=== PATIENT | female | born 1955 | race Caucasian/White ===

== ENCOUNTER 2016-08-15 19:44 | Emergency (ER) | payer OTHER ==
[~2016-08-15] VITALS: Ht 167.6 cm; Wt 97.8 kg
[2016-08-15 19:48] VITALS: TEMP 36.7; Ht 167.6 cm; Wt 97.8 kg
[2016-08-15] MEDS ORDERED: LISI10TA PO (20:08)
[2016-08-15] MEDS ORDERED: SIMV40TA2 PO (20:08)
[2016-08-15] MEDS ORDERED: CARV6.252 PO (20:08)
[2016-08-15 21:05] VITALS: BP 169/123; PULSE 78; O2SAT 95
--- NOTE | 2016-08-15 21:54 | EMERGENCY ROOM VISIT NOTE ---
ED Visit Note First contact with patient: 19:56 CHIEF COMPLAINT: Sore throat HISTORY OF PRESENT ILLNESS: This 60-year-old female patient presents to the emergency department complaining of increasing pain in the throat for the past 3 -4 hours, gradual in onset, worse with swallowing. They rate the pain as sharp and 6/10. They are able to swallow foods and liquids, however does worsen their discomfort.. The patient has not had a fever. No rash. Denies any posterior neck pain or stiffness. No difficulty breathing. There has been no chest pain, no abdominal pain, no nausea or vomiting. Patient denies any cough , rhinorrhea, congestion, or ear pain. The patient has taken nothing for their symptoms. REVIEW OF SYSTEMS: A 6 system review of systems was completed with pertinent positives and negatives in the HPI. ALLERGIES: No known allergies MEDICATIONS: No chronic medications PMH: Otherwise reported healthy SOCIAL HISTORY: Lives at home with family PHYSICAL EXAM: Vital Signs: Reviewed Nurse's notes. GENERAL: White female, in no acute distress, non toxic in appearance, well developed, well nourished. MENTAL STATUS: Alert and oriented to person place and time. SKIN: Clear and dry, no eruptions, or rashes. No cyanosis, no petechiae. EARS: External auditory canals clear, tympanic membrane pearly ghosh without erythema or effusion bilaterally. EYES: Pupils equal round and reactive to light and accommodation. Conjunctivae without injection, sclerae without icterus. Extraocular movements intact. NOSE: Patent, turbinates inflammed with no discharge. No sinus tenderness. MOUTH: Mucous membranes moist. Tonsils are not enlarged and not erythematous or with exudate. The Pharynx is inflamed and slightly swollen. Pharynx No postnasal drip. Uvula is midline and no abscess is seen. NECK: Supple without nuchal rigidity. Anterior cervical lymphadenopathy without posterior cervical, or auricular, or submandibular lymphadenopathy. HEART: Regular rate and rhythm without murmurs gallops or rubs. LUNGS: Clear to auscultation bilaterally without wheezes, rales or rhonchi. ABDOMEN: Positive bowel sounds x 4. Normal tympanic percussion. Soft, nontender, without masses or organomegaly. ED COURSE: Physical exam and history were performed. Nursing notes and EMR were reviewed. The patient appears to have throat pain and discomfort for the past few hours. She states her symptoms worsened with swallowing. She does not have any chest pain or shortness of breath. Her symptoms do not sound cardiac in etiology. A rapid strep was performed and was negative. The strep will be sent for culture. Overall the patient appears well and was instructed on conservative care. Patient is to follow with primary care physician in the next 2-3 days for recheck of her condition. She was otherwise invited back to the ER with any new, worsening, or concerning symptoms. Current/Historical Medications Scheduled Carvedilol (Coreg), 6.25 MG PO BID Lisinopril (Prinivil), 10 MG PO DAILY Simvastatin (Zocor), 40 MG PO QPM Allergies Coded Allergies: No Known Allergies (Unverified , 08/15/16) Vital Signs Date Time Temp Pulse Resp B/P Pulse Ox O2 Delivery O2 Flow Rate FiO2 08/15/16 21:05 78 18 169/123 95 Room Air 08/15/16 19:57 98 Room Air 08/15/16 19:50 95 Room Air 08/15/16 19:48 36.7 76 16 164/108 95 Room Air Departure Information Impression Primary Impression: Throat discomfort Dispostion Home / Self-Care Condition GOOD Forms HOME CARE DOCUMENTATION FORM, IMPORTANT VISIT INFORMATION Patient Instructions My [facility] Additional Instructions You were seen and evaluated today on an emergency basis only. This is not a substitute for, or an effort to provide, complete comprehensive medical care. It is not possible to recognize and treat all injuries or illnesses in a single emergency department visit. For this reason it is recommended that you followup with your primary care physician in 2 to 3 days for recheck of your condition. For baseline pain relief you may alternate ibuprofen and acetaminophen every 4 hours for pain control. Take 600 mg ibuprofen (Advil) and then 4 hours later take 1000 mg acetaminophen (Tylenol). Do not take more than 3000 mg acetaminophen in a single day. Drink plenty of fluids and remain well hydrated You are welcome to return to the emergency department anytime with new, worsening, or concerning symptoms.
== END 2016-08-15 21:10 | disposition home or self-care (01) ==
LOC: C.EDB 19:46 → C.EDD 21:10
DX: R07.0 Pain in throat (principal)

== ENCOUNTER → 2016-10-26 | Outpatient (CLI) | payer OTHER ==
[~2016-10-26] MED LIST: CARV6.252 PO; LISI10TA PO; SIMV40TA2 PO
--- NOTE | 2016-11-01 12:59 | MAMMOGRAPHY REPORT ---
THIS REPORT HAS BEEN AMENDED. BILATERAL DIGITAL SCREENING MAMMOGRAM TOMOSYNTHESIS WITH CAD: 10/26/2016 CLINICAL HISTORY: Routine screening. Patient has no complaints. TECHNIQUE: Bilateral breast tomosynthesis in addition to standard 2D mammography was performed. Curre nt study was also evaluated with a Computer Aided Detection (CAD) system. COMPARISON: No prior exams were available for comparison. BREAST COMPOSITION: There are scattered areas of fibroglandular density in both breasts. FINDINGS: There is an asymmetry in the upper outer middle to posterior left breast, which could repr esent overlapping fibrolinear tissue. However, comparison to prior outside mammograms would be usefu l to assess stability. If the outside exams are not obtained in a timely manner, additional spot com pression tomosynthesis views and possibly ultrasound are recommended. No other suspicious mass, architectural distortion or cluster of microcalcifications is seen bilatera lly. IMPRESSION: ACR BI-RADS CATEGORY 0: INCOMPLETE EVALUATION: NEED ADDITIONAL IMAGING EVALUATION The asymmetry in the upper outer quadrant of the left breast needs comparison to prior outside mammog ibeth to assess stability. If the outside exams are not obtained in a timely manner, additional spot compression tomosynthesis views and possibly ultrasound are recommended. The patient will be called to schedule an appointment. Approximately 10% of breast cancers are not detected with mammography. A negative mammographic report should not delay biopsy if a clinically suggestive mass is present. Paula Pires M.D. ay/:10/31/2016 16:05:34 [facility]: Mavis Williamson, [facility] letter sent: Need Priors 0 BI-RADS Code: ACR BI-RADS Category 0: Incomplete Evaluation: Need Additional Imaging Evaluation AMENDMENT: 01/09/2017 Paula Pires M.D. Prior outside mammograms from [facility] [place] dated 08/24/2008, 12/22/2010, 1, 07/13/2011, 11/01/2012 became available for review. There have been minimal involutional changes comparing to the prior outside mammograms. The asymmetry in the right upper outer quadrant appears v stephanie similar to the 2008 and 2010 mammograms, in particular a left CC spot compression view obtained o n 12/22/2010 appears nearly identical to the current appearance of the lateral left breast on the ful l field CC view, suggesting overlapping fibroglandular tissue. There is no evidence of a new suspici ous mass, focal area of architectural distortion or suspicious calcifications bilaterally. Therefore , recommend routine mammography in October 2017 for next annual screening exam. Amended BI-RADS: ACR BI-RADS Category 2: Benign letter sent: Normal 06/12
== END | disposition home or self-care (01) ==
LOC: C.MAMM 08:12
PROVIDERS: ATTEND Internal Medicine
DX: Z12.31 Encounter for screening mammogram for malignant neoplasm of breast (principal)

== ENCOUNTER → 2016-10-26 | Outpatient (CLI) | payer OTHER | END | disposition home or self-care (01) | LOC: C.PAPS 10:47 | PROVIDERS: ATTEND Obstetrics & Gynecology | DX: Z01.419 Encounter for gynecological examination (general) (routine) without abnormal findings (principal) ==

== ENCOUNTER → 2016-12-25 | Outpatient (CLI) | payer OTHER | END | disposition home or self-care (01) | LOC: C.LABSPEC 17:35 | PROVIDERS: ATTEND Internal Medicine | DX: R39.9 Unspecified symptoms and signs involving the genitourinary system (principal) ==

== ENCOUNTER → 2017-03-30 | Outpatient (CLI) | payer OTHER ==
[2017-03-30 12:34] LABS: URINE APPEARANCE CLEAR (CLEAR); URINE BILIRUBIN NEG (NEG); URINE COLOR YELLOW; URINE EPITHELIAL CELL AUTO >30 /lpf (0-5); URINE NITRITE NEG (NEG); UROBILINOGEN NEG (NEG); ZZUR CULT IF INDIC CLEAN CATCH NO
[2017-03-30 12:39] LABS: MANUAL MICROSCOPIC REQUIRED? NO; REVIEW REQ? NO
[2017-03-30 12:50] LABS: HEMATOCRIT 46.4 % (37-47); PLATELET COUNT 246 K/uL (130-400); WHITE BLOOD COUNT 9.63 K/uL (4.8-10.8)
[2017-03-30 12:51] LABS: ALT/SGPT 35 U/L (12-78); AST/SGOT 26 U/L (15-37); BLOOD UREA NITROGEN 13 mg/dl (7-18); BUN/CREATININE RATIO 17.8 (10-20); CALCIUM 8.7 mg/dl (8.5-10.1); CARBON DIOXIDE 26 mmol/L (21-32); CHLORIDE 107 mmol/L (98-107); CREATININE 0.75 mg/dl (0.60-1.20); GLUCOSE 95 mg/dl (70-99); POTASSIUM 4.7 mmol/L (3.5-5.1); SODIUM 141 mmol/L (136-145)
[2017-03-30 12:54] LABS: ALKALINE PHOSPHATASE 115 U/L (45-117); CHOLESTEROL 180 mg/dl (0-200); CHOLESTEROL/HDL RATIO 2.6; HDL CHOLESTEROL 68 mg/dl; LDL CHOLESTEROL CALCULATED 84 mg/dl; TRIGLYCERIDES 140 mg/dl (0-150); VERY LOW DENSITY LIPOPROT CALC 28 mg/dl
[2017-03-30 12:59] LABS: COMPLETE YES; EOSINOPHIL % 0.9 %; LYMPH ABS # 2.45 K/uL (1.2-3.4); LYMPHOCYTE % 25.4 %; NEUTROPHILS % 68.4 %
[2017-03-30 14:04] LABS: ESTIMATED AVERAGE GLUCOSE 103 mg/dl; HA1C FLAG Normal (Normal)
== END | disposition home or self-care (01) ==
LOC: C.LABBFT 07:37
PROVIDERS: ATTEND Internal Medicine
DX: I10 Essential (primary) hypertension (principal); R73.9 Hyperglycemia, unspecified; E78.5 Hyperlipidemia, unspecified

== ENCOUNTER → 2017-10-22 | Outpatient (CLI) | payer OTHER | END | disposition home or self-care (01) | LOC: C.LABSPEC 12:16 | PROVIDERS: ATTEND Physician Assistant Medical | DX: R39.9 Unspecified symptoms and signs involving the genitourinary system (principal) ==

== ENCOUNTER → 2018-01-10 | Outpatient (CLI) | payer OTHER | END | disposition home or self-care (01) | LOC: C.PAPS 11:54 | PROVIDERS: ATTEND Obstetrics & Gynecology | DX: Z01.419 Encounter for gynecological examination (general) (routine) without abnormal findings (principal) ==